=== PATIENT | male | born 1960 | race Caucasian/White ===

== ENCOUNTER 2018-03-22 19:19 | Emergency (ER) | payer OTHER ==
[2018-03-22 19:36] VITALS: RESP 16; TEMP 98.1
--- NOTE | 2018-03-22 19:37 | CT ---
EXAMINATION TYPE: CT brain wo con for TPA DATE OF EXAM: 03/22/2018 COMPARISON: None HISTORY: 57-year-old male neurologic deficits, weakness TECHNIQUE: Examination was done in axial plane without intravenous contrast. Coronal and sagittal r econstructions performed. CT DLP: 1159.8 mGycm Automated exposure control for dose reduction was used. FINDINGS: There is no evidence of acute intracranial hemorrhage, acute ischemic changes, mass, mass-effect, or extra-axial fluid collection. There is no effacement of cerebral sulci or basal subarachnoid cister ns. There is no hydrocephalus. There is no midline shift. Iniguez-white matter distinction is preserv ed. Trace mucosal thickening anterior ethmoid air cells and right maxillary sinus. Also within the right frontal sinus. Orbits and globes are intact. Mastoid air cells well pneumatized. IMPRESSION: No acute intracranial abnormality seen. If symptoms persist, consider follow-up CT or MRI. Mild chron ic paranasal sinus disease.
--- NOTE | 2018-03-22 19:53 | CT ---
EXAMINATION TYPE: CT angio head neck DATE OF EXAM: 03/22/2018 COMPARISON: Noncontrast CT brain HISTORY: 57-year-old male neurologic deficits, weakness TECHNIQUE: Contiguous axial scanning of the head and neck performed with IV Contrast, patient injecte d with 65 mL of Isovue 370. Coronal/sagittal MIP reconstructions performed. 3-D reconstructions gener ated on a dedicated independent workstation. CT DLP: 410.30 and 1159.80 mGycm Automated exposure control for dose reduction was used. FINDINGS: Neck: There is variant anatomy with aberrant right subclavian artery which takes a Andera esophageal cours e. The bilateral vertebral arteries are patent. The right vertebral artery is slightly nondominant. Arch vessel origins are patent. Tortuosity of the bilateral proximal common carotid arteries. The valarie ateral common carotid arteries and the right internal carotid artery are widely patent. 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 Head: The vertebral arteries and basilar arteries are patent. P1 segment of the left posterior cerebral art ashlie is not visualized. There is no visualized left posterior communicating artery. There is gradual r econstitution of the P2 segment left posterior cerebral artery though enhancement is less as compared to the contralateral side. Occlusion of the left internal carotid artery extends into the intracranial space. There is reconstit ution at the level of the left carotid terminus probably from the anterior communicating artery. Sati sfactory opacification of the anterior and middle cerebral arteries. IMPRESSION: NECK: 1. 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 2. AGE-INDETERMINATE LEFT ICA OCCLUSION AT THE LEVEL OF THE LEFT CAROTID BULB. HEAD: 1. RECONSTITUTION OF THE LEFT INTERNAL CAROTID ARTERY AT THE LEVEL OF THE CAROTID TERMINUS PROBABLY F ROM THE ANTERIOR COMMUNICATING ARTERY. THERE IS SYMMETRICAL ENHANCEMENT OF THE BILATERAL ANTERIOR AND MIDDLE CEREBRAL ARTERIES. 2. HOWEVER, THE P1 SEGMENT LEFT POSTERIOR CEREBRAL ARTERY IS NOT VISUALIZED. NO LEFT POSTERIOR COMMUN ICATING ARTERY IS IDENTIFIED. THERE IS VERY FAINT, ASYMMETRIC RECONSTITUTION OF THE P2 SEGMENT LEFT P OSTERIOR CEREBRAL ARTERY. HIGH-GRADE STENOSIS OR OCCLUSION OF THE PROXIMAL LEFT SANDING LINE OPERATOR DIFFICULT TO EXCL UDE. CLINICALLY CORRELATE.
[2018-03-22 19:54] LABS: Basophils # (A) 0.1 k/uL (0-0.2); Basophils % (A) 1 %; Eosinophils # (A) 0.2 k/uL (0-0.7); Eosinophils % (A) 2 %; Lymphocytes # (A) 3.6 k/uL (1.0-4.8); Lymphocytes % (A) 35 %; MCHC 32.5 g/dL (31.0-37.0); MCV 89.3 fL (80.0-100.0); Mean Platelet Volume 6.4; Monocytes # (A) 0.6 k/uL (0-1.0); Monocytes % (A) 6 %; Neutrophils # (A) 5.6 k/uL (1.3-7.7); Neutrophils % (A) 55 %; Platelet Count 286 k/uL (150-450); RBC 5.16 m/uL (4.30-5.90); RDW 14.4 % (11.5-15.5); WBC 10.2 k/uL (3.8-10.6)
--- NOTE | 2018-03-22 19:54 | ED ---
Neuro HPI - General Stated Complaint: Possible CVA Time Seen by Provider: 03/22/18 19:20 Source: EMS Mode of arrival: EMS Limitations: altered mental status - History of Present Illness Is the patient presenting with stroke symptoms?: Yes Last Known Well Date: 03/22/18 Last Known Well Time: 18:30 Onset/Timin -: hour(s) Initial Comments: Carlin britton 7-year-old male who presents to the emergency department today via EMS for evaluation of a sudden onset of difficulty with speech and right-sided weakness. History is limited by the patient's inability to communicate verbally. Per the patient's significant other he was preparing dinner around 6:30 PM, she laid down in the room next to the kitchen to rest while he prepared the meal. She reports that she heard him moaning very loudly and ran into the kitchen to find him leaned up against the sink with apparent right-sided weakness and inability to speak. She assisted him to the ground and immediately called 911. She was last seen normal approximately 620 6:30 PM, this was sudden in onset. Patient's significant other reports that he has relatively healthy, he had a surgical hernia repair approximately one year ago and saw his primary care physician last month for discussion of a periumbilical hernia. He is on no medications, has no recent trauma or injury, no history of intracranial bleeding she is aware of. Location: speech, right arm, right leg, altered History of same: No Place: home Severity: severe Improves With: none Worsens With: none On Anticoagulants: No Context: sudden onset Treatments Prior to Arrival: oxygen - Related Data Allergies/Adverse Reactions: Allergies Allergy/AdvReac Type Severity Reaction Status Date / Time bee venom protein (honey bee) Allergy Swelling Verified 03/22/18 19:37 Review of Systems ROS Statement: Those systems with pertinent positive or pertinent negative responses have been documented in the HPI. ROS Other: All systems not noted in ROS Statement are negative. General Exam Limitations: altered mental status General appearance: alert, in distress Head exam: Present: atraumatic, normocephalic Eye exam: Present: PERRL, EOMI ENT exam: Present: mucous membranes moist Neck exam: Present: full ROM Respiratory exam: Absent: respiratory distress, wheezes Cardiovascular Exam: Present: regular rate, normal rhythm GI/Abdominal exam: Present: soft, distended, hernia. Absent: tenderness, guarding, rebound, rigid Rectal exam: Present: deferred Extremities exam: Present: other (right sided hemiparesis). Absent: full ROM Neurological exam: Present: alert, motor sensory deficit, other (gait not tested ). Absent: CN II-XII intact (Right sided facial droop), reflexes normal Psychiatric exam: Present: anxious Skin exam: Present: warm, dry Stroke MDM - Lab Data Result diagrams: 03/22/18 19:41 03/22/18 19:41 Lab Results 03/22/18 03/22/18 03/22/18 Range/Units 19:41 19:41 19:41 WBC 10.2 (3.8-10.6) k/uL RBC 5.16 (4.30-5.90) m/uL Hgb 15.0 (13.0-17.5) gm/dL Hct 46.0 (39.0-53.0) % MCV 89.3 (80.0-100.0) fL MCH 29.0 (25.0-35.0) pg MCHC 32.5 (31.0-37.0) g/dL RDW 14.4 (11.5-15.5) % Plt Count 286 (150-450) k/uL Neutrophils % 55 % Lymphocytes % 35 % Monocytes % 6 % Eosinophils % 2 % Basophils % 1 % Neutrophils # 5.6 (1.3-7.7) k/uL Lymphocytes # 3.6 (1.0-4.8) k/uL Monocytes # 0.6 (0-1.0) k/uL Eosinophils # 0.2 (0-0.7) k/uL Basophils # 0.1 (0-0.2) k/uL PT (9.0-12.0) sec INR (<1.2) APTT (22.0-30.0) sec Sodium 139 (137-145) mmol/L Potassium 4.2 (3.5-5.1) mmol/L Chloride 107 (98-107) mmol/L Carbon Dioxide 21 L (22-30) mmol/L Anion Gap 11 mmol/L BUN 10 (9-20) mg/dL Creatinine 0.72 (0.66-1.25) mg/dL Est GFR (CKD-EPI)AfAm >90 (>60 ml/min/1.73 sqM) Est GFR (CKD-EPI)NonAf >90 (>60 ml/min/1.73 sqM) Glucose 84 (74-99) mg/dL POC Glucose (mg/dL) (75-99) mg/dL POC Glu Burial Agent ID Calcium 9.1 (8.4-10.2) mg/dL Total Bilirubin 0.3 (0.2-1.3) mg/dL AST 29 (17-59) U/L ALT 33 (21-72) U/L Alkaline Phosphatase 61 (38-126) U/L Total Creatine Kinase 175 H (55-170) U/L CK-MB (CK-2) 1.9 (0.0-2.4) ng/mL CK-MB (CK-2) Rel Index 1.1 Troponin I <0.012 (0.000-0.034) ng/mL Total Protein 6.8 (6.3-8.2) g/dL Albumin 3.8 (3.5-5.0) g/dL 03/22/18 03/22/18 Range/Units 19:41 20:06 WBC (3.8-10.6) k/uL RBC (4.30-5.90) m/uL Hgb (13.0-17.5) gm/dL Hct (39.0-53.0) % MCV (80.0-100.0) fL MCH (25.0-35.0) pg MCHC (31.0-37.0) g/dL RDW (11.5-15.5) % Plt Count (150-450) k/uL Neutrophils % % Lymphocytes % % Monocytes % % Eosinophils % % Basophils % % Neutrophils # (1.3-7.7) k/uL Lymphocytes # (1.0-4.8) k/uL Monocytes # (0-1.0) k/uL Eosinophils # (0-0.7) k/uL Basophils # (0-0.2) k/uL PT 10.2 (9.0-12.0) sec INR 1.0 (<1.2) APTT 24.5 (22.0-30.0) sec Sodium (137-145) mmol/L Potassium (3.5-5.1) mmol/L Chloride (98-107) mmol/L Carbon Dioxide (22-30) mmol/L Anion Gap mmol/L BUN (9-20) mg/dL Creatinine (0.66-1.25) mg/dL Est GFR (CKD-EPI)AfAm (>60 ml/min/1.73 sqM) Est GFR (CKD-EPI)NonAf (>60 ml/min/1.73 sqM) Glucose (74-99) mg/dL POC Glucose (mg/dL) 91 (75-99) mg/dL POC Glu Burial Agent Radha Montalvo Calcium (8.4-10.2) mg/dL Total Bilirubin (0.2-1.3) mg/dL AST (17-59) U/L ALT (21-72) U/L Alkaline Phosphatase (38-126) U/L Total Creatine Kinase (55-170) U/L CK-MB (CK-2) (0.0-2.4) ng/mL CK-MB (CK-2) Rel Index Troponin I (0.000-0.034) ng/mL Total Protein (6.3-8.2) g/dL Albumin (3.5-5.0) g/dL - NIH Stroke Scale 1a. Level of Consciousness: (0) alert 1b. LOC Questions: (2) answers no questions correctly 1c. LOC Commands: (2) performs no tasks correctly 2. Best Gaze: (0) normal 3. Visual: (0) no visual loss 4. Facial Palsy: (2) partial paralysis 5a. Motor Arm Left: (0) no drift 5b. Motor Arm Right: (3) no gravity effort 6a. Motor Leg Left: (0) no drift 6b. Motor Leg Right: (3) no gravity effort 8. Sensory: (1) mild/moderate sensory loss 9. Best Language: (2) severe aphasia 10. Dysarthria: (1) mild/moderate dysarthria 11. Extinction/Inattention: (1) visual/tactile inattention - Thrombolytic Inclusion/Exclusion Thrombolytic Inclusion Criteria: Ischemic Stroke Onset< 3h - Medical Decision Making CODE STROKE Called from field Patient evaluated immediately upon arrival to the ER Patient with expressive aphasia, right sided deficits - on initial exam will have high NIH - patient taken by EMS to CT CT and CTA ordered Labs ordered History obtained from patient's significant other Last normal/Time of onset 6:30pm No obvious exclusion criteria for TPA CT with no acute findings CTA suggestive of RESEARCH TECHNICIAN occlusion Pharmacy contacted for TPA administration Patient care discussed with Dr. Allen who agrees with plan for TPA and transfer to [facility] Patient care discussed with Dr. Guzman at [facility] who accepts transfer Bolus of TPA given and TPA infusion started, repeat BP elevated, Labetalol ordered Patient remained hypertensive - second dose of Labetalol ordered and given Nicardipine gtt ordered and started - patient's BP improving - increased the Nicardipine to 7.5mg/hr prior to transfer. - EKG Data -: EKG Interpreted by Me (EKG obtained at 1935 - rate 87, rhythm sinus, normal axis, prolonged QT) EKG shows normal: sinus rhythm Rate: normal Past Medical History Past Medical History: No Reported History History of Any Multi-Drug Resistant Organisms: None Reported Past Surgical History: Hernia Repair Past Psychological History: No Psychological Hx Reported Smoking Status: Current every day smoker Past Alcohol Use History: Occasional Past Drug Use History: None Reported Course Vital Signs 03/22/18 03/22/18 19:32 19:42 Temperature 98.1 F Pulse Rate 84 72 Respiratory 16 16 Rate Blood Pressure 165/97 168/97 O2 Sat by Pulse 97 97 Oximetry Disposition Clinical Impression: Acute ischemic stroke Disposition: OTHER INSTITUTION NOT DEFINED Condition: Serious Referrals: Nonstaff,Physician [Primary Care Provider] - 1-2 days - Out of Hospital Transfer - Req. Specs Out of Hospital Transfer - Requested Specifics: Other Emergency Center ([facility])
[2018-03-22] MEDS ORDERED: tPA (Alteplase) PER PHARMACY 1 EACH MISC MISCELLANE PRN (19:55)
[2018-03-22] MEDS ORDERED: ALTEPLASE BOLUS 9 MG in EMPTY SYRINGE 1 SYR IV STA (19:57)
[2018-03-22] MEDS ORDERED: ALTEPLASE 81 MG in EMPTY BAG 1 BAG IV STA (19:59)
[2018-03-22 20:00] LABS: Partial Thromboplastin Time 24.5 sec (22.0-30.0); Prothrombin Time 10.2 sec (9.0-12.0)
[2018-03-22 20:06] LABS: ALT 33 U/L (21-72); AST 29 U/L (17-59); Albumin 3.8 g/dL (3.5-5.0); Alkaline Phosphatase 61 U/L (38-126); Anion Gap 11 mmol/L; Blood Urea Nitrogen 10 mg/dL (9-20); Calcium 9.1 mg/dL (8.4-10.2); Carbon Dioxide 21 mmol/L (22-30); Chloride 107 mmol/L (98-107); Glucose 84 mg/dL (74-99); Potassium 4.2 mmol/L (3.5-5.1); Sodium 139 mmol/L (137-145); Total Bilirubin 0.3 mg/dL (0.2-1.3); Total Protein 6.8 g/dL (6.3-8.2)
[2018-03-22 20:09] LABS: Creatine Kinase 175 U/L (55-170)
[2018-03-22 20:10] LABS: Glucose,Whole Blood 91 mg/dL (75-99)
[2018-03-22] MEDS ORDERED: LABETALOL 5 MG/ML VIAL MDV IVP STA ×2 (20:21→20:35)
[2018-03-22 20:23] LABS: Creatine Kinase MB 1.9 ng/mL (0.0-2.4); Troponin I <0.012 ng/mL (0.000-0.034)
[2018-03-22 21:14] VITALS: BP 186/103; PULSE 73
== END 2018-03-22 20:49 | disposition short-term general hospital (02) ==
LOC: EC 19:19
DX: I63.9 Cerebral infarction, unspecified (principal); I10 Essential (primary) hypertension; F41.9 Anxiety disorder, unspecified; K42.9 Umbilical hernia without obstruction or gangrene; F17.200 Nicotine dependence, unspecified, uncomplicated; Z91.018 Allergy to other foods
CPT/HCPCS: 36415; 93005; 80053; 82550; 82553; 84484; 85025; 85610; 85730; 70496; 70450; 70498; 99285; 96365; 96375 ×2; J2997; Q9967